=== PATIENT | female | born 1935 | race Caucasian/White ===

== ENCOUNTER 2022-07-11 08:53 | Outpatient (CLI) | payer MEDICARE, BC, SELFPAY | END 2022-07-11 08:54 | disposition home or self-care (01) | LOC: AMB 07-12 09:40 | PROVIDERS: Visit Provider Family Medicine | DX: R19.7 Diarrhea, unspecified (principal); R11.2 Nausea with vomiting, unspecified | CPT/HCPCS: A0425; A0427 ==